=== PATIENT | male | born 1970 | race American Indian/Alaskan Native ===

== ENCOUNTER 2021-01-28 15:45 | Emergency (ER) | payer SELFPAY ==
--- NOTE | 2021-01-28 16:33 | Emergency Department Report ---
ED Psych HPI - General Chief Complaint: Psych Stated Complaint: SI, CHEST PAIN, HAND CRAMPS, ABSCESS ON TOOTH Time Seen by Provider: 01/28/21 16:16 Source: patient Mode of arrival: Stretcher - History of Present Illness Initial Comments: Patient is 50 years old male with history of depression. Patient brought to the emergency room via EMS from home for evaluation of depression and suicidal ideation. Patient stated that he is planning to cut his wrist. Patient stated that he had previous attempts before. Patient also admitted that he has been using cocaine in the last few days He denies any homicidal ideation, auditory hallucination or visual hallucination. MD Complaint: suicidal ideation, feels depressed -: days(s) Associated Psychiatric Symptoms: depression, suicidal ideation Context: recent drug abuse Associated Symptoms: denies other symptoms If Self Harm: admits thoughts of, has plan, self-inflicted trauma - Related Data Home Medications Medication Instructions Recorded Confirmed Last Taken No Known Home Medications [No 01/29/21 01/29/21 Unknown Reported Home Medications] Allergies Allergy/AdvReac Type Severity Reaction Status Date / Time No Known Allergies Allergy Unverified 01/28/21 15:52 ED Review of Systems ROS: Stated complaint: SI, CHEST PAIN, HAND CRAMPS, ABSCESS ON TOOTH Other details as noted in HPI Comment: All other systems reviewed and negative Constitutional: denies: chills, fever Cardiovascular: denies: chest pain, palpitations Gastrointestinal: denies: abdominal pain, nausea, vomiting Musculoskeletal: denies: back pain Neurological: denies: headache, weakness Psychiatric: depression, suicidal thoughts. denies: auditory hallucinations, visual hallucinations, homicidal thoughts ED Past Medical Hx - Past Medical History Previous Medical History?: No - Surgical History Past Surgical History?: No - Medications Home Medications: Home Medications Medication Instructions Recorded Confirmed Last Taken Type No Known Home Medications [No 01/29/21 01/29/21 Unknown History Reported Home Medications] ED Physical Exam - General Limitations: No Limitations General appearance: alert, in no apparent distress, anxious - Head Head exam: Present: atraumatic, normocephalic, normal inspection - Eye Eye exam: Present: normal appearance, PERRL - ENT ENT exam: Present: normal exam, normal orophraynx, mucous membranes moist - Neck Neck exam: Present: normal inspection, full ROM. Absent: tenderness, meningismus, lymphadenopathy, thyromegaly - Respiratory Respiratory exam: Present: normal lung sounds bilaterally - Cardiovascular Cardiovascular Exam: Present: regular rate, normal rhythm, normal heart sounds - GI/Abdominal GI/Abdominal exam: Present: soft, normal bowel sounds. Absent: distended, tenderness, guarding, rebound, rigid, organomegaly, mass, bruit, pulsatile mass, hernia - Extremities Exam Extremities exam: Present: normal inspection, full ROM, normal capillary refill. Absent: pedal edema, calf tenderness - Back Exam Back exam: Present: normal inspection, full ROM. Absent: CVA tenderness (R), CVA tenderness (L) - Neurological Exam Neurological exam: Present: alert, oriented X3, CN II-XII intact - Psychiatric Psychiatric exam: Present: depressed, anxious, suicidal ideation. Absent: homicidal ideation - Skin Skin exam: Present: warm, intact, normal color ED Course Vital Signs 01/28/21 01/28/21 01/28/21 15:54 16:32 19:00 Temperature 98.6 F 97.9 F Pulse Rate 65 69 Respiratory 18 20 18 Rate Blood Pressure 156/87 167/82 [Right] O2 Sat by Pulse 98 99 Oximetry 01/28/21 01/29/21 01/29/21 22:07 03:25 08:26 Temperature 98.0 F 98.6 F Pulse Rate 56 L 67 Respiratory 18 16 20 Rate Blood Pressure 136/67 141/69 [Right] O2 Sat by Pulse 98 97 Oximetry ED Medical Decision Making - Lab Data Result diagrams: 01/28/21 16:27 01/28/21 16:27 - Medical Decision Making Patient is 50 years old male with history of depression. Patient brought to the emergency room via EMS from home for evaluation of depression and suicidal ideation. Patient stated that he is planning to cut his wrist. Patient stated that he had previous attempts before. Patient also admitted that he has been using cocaine in the last few days He denies any homicidal ideation, auditory hallucination or visual hallucination. Labs reviewed and is unremarkable except for UDS positive for cocaine. Patient is medically cleared to be evaluated by psychiatric team. Psychiatric team advised to discharge patient home and follow-up as an outpatient. Patient denied any suicidal homicidal ideation. No visual or auditory hallucination. Patient is medically and psychiatrically stable for discharge. Critical care attestation.: If time is entered above; I have spent that time in minutes in the direct care of this critically ill patient, excluding procedure time. ED Disposition Clinical Impression: Drug-induced psychotic disorder, Cocaine abuse Disposition: DC-01 TO HOME OR SELFCARE Is pt being admited?: No Condition: Stable Instructions: Substance Use Disorder and Mental Illness Additional Instructions: Professional and Agency Contacts To help Res[facility] Crises(01/03) [place] Crisis Line: Suicide Prevention Line: Crisis Text Line: Text START to 607205 Emergency: 911 Outpatient [facility] Behavioral Health Resources: [place]: [facility] [address] [place], [place] [address] [place]: [facility] [address] [place] [address] [place]: [facility] - [address] [place] [address] Wednesday thru Wednesday - 8am - 5pm [place]: [facility] Address: [address] [place] [address] [place]: [facility] Address: [address] [place] [address] Wednesday thru Wednesday- 7am-2pm Av [facility] Address: [address] [place] [address] Wednesday thru Wednesday: 8:30AM-5PM In case of an emergency, please contact the following numbers: [place] Crisis and Access Line: Number: Crisis Text Line: (Text START) Number: 050322 Suicide Prevention Line: Number: Emergency Number: 911 SUBSTANCE ABUSE PROGRAMS: [facility]: Location: [place], [place] [facility]! Address: [address] [place] [address] [facility]: Address: [address] [place] [address] [facility]: Address: [address] [place] [address] [place] [address] [facility] Community: Address: [address] [place] [address] [facility] Address: [address] [place] [address]. Please contact above numbers to attempt placement into free based program. Medicaid Programs: [facility]: Address: [address] [place] [address] [facility]: Address: [address] [place] [address] Referrals: PRIMARY CARE, [Primary Care Provider] - 3-5 Days Forms: Work/School Release Form(ED)
[2021-01-28 16:54] LABS: Bilirubin,Urine NEG (Negative); Blood,Urine SM (Negative); Color,Urine Yellow (Yellow); Protein,Urine <15 mg/dL mg/dL (Negative); Urobilinogen,Urine < 2.0 mg/dL (<2.0)
[2021-01-28 17:02] LABS: Amphetamine Screen,Urine Negative; Benzodiazepines Screen,Urine Negative; Methadone Screen,Urine Negative; Opiate Screen,Urine Negative
[2021-01-28 17:10] LABS: Basophils # (Auto) 0.1 K/mm3 (0.0-0.1); Basophils % (Auto) 0.7 % (0.0-1.8); Eosinophils # (Auto) 0.1 K/mm3 (0.0-0.4); Eosinophils % (Auto) 1.4 % (0.0-4.3); Hematocrit 43.4 % (35.5-45.6); Hemoglobin 14.9 gm/dl (11.8-15.2); Lymphocytes # (Auto) 2.6 K/mm3 (1.2-5.4); Lymphocytes % (Auto) 27.6 % (13.4-35.0); Mean Corpuscular HGB Conc 34 % (32-34); Mean Corpuscular Volume 90 fl (84-94); Monocytes # (Auto) 0.5 K/mm3 (0.0-0.8); Platelet Count 266 K/mm3 (140-440); Red Blood Count 4.83 M/mm3 (3.65-5.03); Red Cell Distribution Width 14.9 % (13.2-15.2)
[2021-01-28 17:22] LABS: Cannabinoid Screen,Urine Positive; Cocaine Screen,Urine Positive
[2021-01-28 17:29] LABS: BUN/Creatinine Ratio 13; Blood Urea Nitrogen 10 mg/dL (9-20); Calcium 9.9 mg/dL (8.4-10.2); Hemolysis Index 0
[2021-01-28] MEDS ORDERED: ACETAMINOPHEN 325 MG TAB PO ONE (22:03)
[2021-01-29 08:27] VITALS: BP 141/69
--- NOTE | 2021-01-29 08:27 | Consultation ---
History of Present Illness - Reason for Consult Consult date: 01/29/21 Reason for consult: SI - History of Present Psychiatric Illness Per ED Note: Patient is 50 years old male with history of depression. Patient brought to the emergency room via EMS from home for evaluation of depression and suicidal ideation. Patient stated that he is planning to cut his wrist. Patient stated that he had previous attempts before. Patient also admitted that he has been using cocaine in the last few days He denies any homicidal ideation, auditory hallucination or visual hallucination. Mandeep Blanc is a 50y/o male whom I evaluated today. The patient is a/o x 3. He is lucid, calm and cooperated. The patient says "yesterday I got high. I smoked some weed, crack and drank some beer." He says "it was messing with my mind and had people thinking I was crazy." The patient says "I was all over the place." He says "my job is calling and everything. I have to be at work today." He looks at the nurse who is with another patient and states, "hey, tell her my job has been calling up here." The nurse replies "yes, his job has been calling." The patient denies SI/HI. He says "I've never had suicidal thoughts about myself or hurting nobody else as far as that goes." He states "If I said that yesterday, I was just high." He says "I got too much to live for. Kill myself for what." The patient states "I have grand kids who depend on me." He then says "I am still m orning my mother. But not to the point where I want to end my life." The patient denies hallucinations of any kind. He says "never." He also denies every being on psych meds, suicidal attempt or any past psych admissions. The patient says "I work a lot of hours a week. I gotta get to work. Today, ma'am. Trust I'm not going to hurt me or anybody." PAST PSYCHIATRIC HISTORY: Diagnoses: Denies Suicide attempts or Self-harm behavior: denies Prior psychiatric hospitalizations: denies Substance Abuse history: crack Previous psychiatric medications tried: Denies Outpatient treatment: Denies PAST MEDICAL HISTORY: None reported Family Psychiatric History: None reported or documented SOCIAL HISTORY Marital Status: Living Arrangements: by myself Employment Status: Employed Access to guns/weapons: Denies Education: 12th grade History of Abuse: None reported Legal History: None REVIEW OF SYSTEMS Constitutional: Negative for weight loss ENT: Negative for stridor Respiratory: Negative for cough or hemoptysis All other systems reviewed and are negative MENTAL STATUS EXAMINATION General Appearance and Behavior: Age appropriate, wearing appropriate clothes, calm, cooperative, polite Cooperation: Participating, engaging Psychomotor Behavior: unremarkable and within normal limits Mood: good Affect and affective range: Euthymic, smiling Thought Process: goal directed Thought Content: None Speech: Normal volume, Regular rate and rhythm, Intellectual Functioning: Average Suicidal Ideation: Denies SI Homicidal Ideation: Denies HI Hallucinations: Denies Delusions: None elicited Impulse Control: Unimpaired Insight and Judgment: Limited insight and judgment Memory: Normal Attention: Undivided attention impaired Orientation: Alert, oriented, Diagnoses Cocaine Dependence with Substance Induced Mood Treatment Plan d/c 1013 No scripts given Sitter: Per primary Medical: Per primary Disposition: Do not recommend acute psychiatric inpatient. The patient understands that if SI/HI or any fear of endangerment are to occur he should seek immediate assistance. The promotions executive producer to give outpatient resources. The patient to abstain from all illicit drug use The promotions executive producer to further discuss safety plan and document The promotions executive producer to give the patient resources for outpatient psych and drug rehab The patient to follow up in 7 to 14 days upon discharge Will sign off. Thank you. Case staffed with Dr. Gonsalez Medications and Allergies Allergies Allergy/AdvReac Type Severity Reaction Status Date / Time No Known Allergies Allergy Unverified 01/28/21 15:52 Home Medications Medication Instructions Recorded Confirmed Last Taken Type No Known Home Medications [No 01/29/21 01/29/21 Unknown History Reported Home Medications] Mental Status Exam - Vital signs Last Vital Signs Temp 98.6 F 01/29/21 08:26 Pulse 67 01/29/21 08:26 Resp 20 01/29/21 08:26 BP 141/69 01/29/21 08:26 Pulse Ox 97 01/29/21 08:26 Results Result Diagrams: 01/28/21 16:27 01/28/21 16:27 Abnormal lab results 01/28/21 01/28/21 01/28/21 Range/Units 16:27 16:27 16:27 Glucose 70 L (75-100) mg/dL Salicylates < 0.3 L (2.8-20.0) mg/dL Acetaminophen 5.0 L (10.0-30.0) ug/mL All other labs normal.
--- NOTE | 2021-01-29 19:25 | Electrocardiograph Report ---
[facility] Test Date: 2021-01-28 Test Time: 16:05:19 Pat Name: CHEL KEEN Department: Room: Gender: M Redrawer: : 1970 Requested By: MARYELLEN CAIN Order Number: [id number] Reading MD: Shayy Lorenzana Measurements Intervals Nelson Rate: 62 P: 59 LA: 192 QRS: 37 QRSD: 125 T: 49 QT: 445 QTc: 453 Interpretive Statements Sinus rhythm Incomplete right bundle branch block No previous ECG available for comparison Electronically Signed On 01-29-2021 19:25:16 EDT by Shayy Lorenzana
== END 2021-01-29 10:27 | disposition home or self-care (01) ==
LOC: ED 15:45
DX: F19.951 Other psychoactive substance use, unspecified with psychoactive substance-induced psychotic disorder with hallucinations (principal); F14.10 Cocaine abuse, uncomplicated; R45.851 Suicidal ideations; F32.9 Major depressive disorder, single episode, unspecified
CPT/HCPCS: 36415; 80048; 80307; 80320; 81001; 84484; 85025; 93005; 99284; G0480